=== PATIENT | male | born 1970 | race Caucasian/White ===

== ENCOUNTER 2020-03-14 13:49 | Inpatient (IN) | payer OTHER ==
[~2020-03-14] VITALS: Ht 175.3 cm; Wt 88.6 kg
[~2020-03-14 13:49] MED LIST: PROPOFOL 10 MG/ML, 20ML ONE
[2020-03-14 14:39] VITALS: BP 115/81
[2020-03-14] MEDS ORDERED: OMEP20TA62 PO (14:51)
[2020-03-14] MEDS ORDERED: CHLORHEXIDINE 15 ML UDC ONE (14:53)
[2020-03-14] MEDS ORDERED: CHLORHEXIDINE 15 ML UDC MM STA (15:21)
[2020-03-14] MEDS ORDERED: LACTATED RINGERS 1,000 ML IV SCH ×3 (15:30→19:30)
[2020-03-14] MEDS ORDERED: MIDAZOLAM 1 MG/ML, 2ML ONE (15:43)
[2020-03-14] MEDS ORDERED: FENTANYL PF 100 MCG/2ML ONE (15:43)
[2020-03-14] MEDS ORDERED: FENTANYL PF 100 MCG/2ML IV PRN (16:30)
[2020-03-14] MEDS ORDERED: MEPERIDINE/PF 25MG/0.5ML IVPush PRN (16:30)
[2020-03-14] MEDS ORDERED: HYDROcodone/APAP 7.5-325MG/15ML UDC PO PRN (16:30)
[2020-03-14] MEDS ORDERED: PROMETHAZINE 25 MG/ML, 1ML IVPush PRN (16:30)
[2020-03-14] MEDS ORDERED: HYDROmorphone 1 MG/ML, 1ML INJ IVPush PRN (16:30)
[2020-03-14] MEDS ORDERED: OXYcodone 5 MG/5 ML ORAL.SOL UDC PO PRN (16:30)
[2020-03-14] MEDS ORDERED: VANCOMYCIN 2,000 MG in SODIUM CHLORIDE 0.9% 500 ML IV ONE (19:30)
[2020-03-14] MEDS ORDERED: CEFAZOLIN 2,000 MG in SODIUM CHLORIDE 0.9% 50 ML IV SCH ×2 (19:30→20:00)
[2020-03-14] MEDS ORDERED: ONDANSETRON 4 MG TABLET PO PRN (19:30)
[2020-03-14] MEDS ORDERED: PHARMACOKINETIC MONITORING MC PRN (19:30)
[2020-03-14] MEDS ORDERED: PHARMACOKINETIC CONSULTATION MC ONE (19:30)
[2020-03-14] MEDS ORDERED: VANCOMYCIN PER PHARMACY MC PRN (19:30)
[2020-03-14] MEDS ORDERED: ONDANSETRON 2MG/ML, 2ML IVPush PRN (19:30)
[2020-03-14 19:45] VITALS: BP 121/79
[2020-03-14] MEDS: OXYcodone IR 5MG TABLET PO PRN (20:41)
[2020-03-14] MEDS ORDERED: GABAPENTIN 300 MG CAPSULE PO SCH (21:00)
[2020-03-15 00:18] VITALS: BP 149/93
[2020-03-15] MEDS: CEFAZOLIN PMX 2GM/50ML 50 ML IVPB SCH ×2 (01:13→08:35)
[2020-03-15 04:13] VITALS: BP 124/78
[2020-03-15] MEDS ORDERED: OMEPRAZOLE 20 MG CAPSULE.DR PO SCH (06:00)
[2020-03-15 07:18] LABS: CREATININE 1.05 mg/dL (0.7-1.3)
[2020-03-15] MEDS: OXYcodone IR 5MG TABLET PO PRN (08:36)
[2020-03-15] MEDS ORDERED: LEFLUNOMIDE 20 MG TABLET PO SCH (09:00)
[2020-03-15] MEDS ORDERED: MONTELUKAST 10 MG TABLET PO SCH (09:00)
[2020-03-15] MEDS ORDERED: METOPROLOL TARTRATE 50 MG TAB PO SCH (09:00)
[2020-03-15] MEDS ORDERED: AMLODIPINE 10 MG TAB PO SCH (09:00)
[2020-03-15] MEDS ORDERED: VANCOMYCIN 1,600 MG in SODIUM CHLORIDE 0.9% 250 ML IV SCH (09:00)
[2020-03-15] MEDS ORDERED: CHOLECALCIFEROL 1,000 UNIT TABLET PO SCH (09:00)
[2020-03-15] MEDS ORDERED: FLUTICASONE NASAL SPRAY 16GM NAS SCH (09:00)
[2020-03-15] MEDS ORDERED: LOSARTAN 50MG TABLET PO SCH (09:00)
[2020-03-15] MEDS ORDERED: HYDROCHLOROTHIAZIDE 25 MG TABLET PO SCH (09:00)
[2020-03-15] MEDS ORDERED: LORATADINE 10 MG TABLET PO SCH (09:00)
[2020-03-15] MEDS ORDERED: ESTRADIOL 1 MG TABLET PO SCH (09:00)
[2020-03-15 13:33] VITALS: BP 136/82
[2020-03-15] MEDS: PIPERACILLIN/TAZO/PMX 4.5GM 100 ML IV SCH ×2 (14:33→21:21)
[2020-03-15] MEDS: VANCOMYCIN 1,600 MG in SODIUM CHLORIDE 0.9% 250 ML IV SCH (15:38)
[2020-03-15 18:49] VITALS: BP 130/83
[2020-03-16] MEDS: OXYcodone IR 5MG TABLET PO PRN ×4 (02:11→23:44)
[2020-03-16 02:12] VITALS: BP 131/77
[2020-03-16] MEDS: morphine SULFATE 10 MG/ML, 1ML IVPush PRN (02:38)
[2020-03-16] MEDS: VANCOMYCIN 1,600 MG in SODIUM CHLORIDE 0.9% 250 ML IV SCH (03:28)
[2020-03-16] MEDS: PIPERACILLIN/TAZO/PMX 4.5GM 100 ML IV SCH ×3 (05:39→22:16)
[2020-03-16 05:50] LABS: BASOPHILS % (AUTO) 1 % (0-1); EOSINOPHILS % (AUTO) 4 % (1-7); LYMPHOCYTES % (AUTO) 30 % (22-44); MEAN CORPUSCULAR HGB CONC 33.4 g/dL (33.2-36.2); MEAN PLATELET VOLUME 6.2 fL (7.4-10.4); MONOCYTES % (AUTO) 8 % (2-9); NEUTROPHILS % (AUTO) 57 % (42-75); PLATELET COUNT 305 x10^3/uL (130-400); RED BLOOD COUNT 4.55 x10^6/uL (4.38-5.82); RED CELL DISTRIBUTION WIDTH 13.4 % (9.4-14.8)
[2020-03-16 05:59] LABS: CHLORIDE 105 mmol/L (98-107)
[2020-03-16 06:09] LABS: ALANINE AMINOTRANSFERASE 20 U/L (12-78); ALBUMIN 3.4 g/dL (3.4-5.0); ALKALINE PHOSPHATASE 90 U/L (45-117); ANION GAP 3 mmol/L (5-15); BILIRUBIN,TOTAL 0.8 mg/dL (0.2-1.0); C-REACTIVE PROTEIN, QUANT 0.21 mg/dL (0.02-0.49); CALCIUM 9.4 mg/dL (8.5-10.1); CREATININE 1.12 mg/dL (0.7-1.3); TOTAL PROTEIN 6.8 g/dL (6.4-8.2)
[2020-03-16 06:13] LABS: MD NO
[2020-03-16 06:14] LABS: HCT (SEDRATE) 38.1 % (39.2-51.8)
[2020-03-16 08:00] VITALS: BP 150/87
[2020-03-16 12:33] VITALS: BP 130/82
[2020-03-16] MEDS ORDERED: OMEPRAZOLE 20 MG CAPSULE.DR PO SCH (16:00)
[2020-03-16] MEDS: OMEPRAZOLE 20 MG CAPSULE.DR PO SCH (16:42)
[2020-03-16] MEDS: VANCOMYCIN 1,500 MG in SODIUM CHLORIDE 0.9% 250 ML IV SCH (16:42)
[2020-03-16] MEDS ORDERED: MEGESTROL ORAL.SUSP 40 MG/ML PO SCH ×2 (17:00→21:00)
[2020-03-16] MEDS: MEGESTROL ORAL.SUSP 40 MG/ML PO SCH (18:07)
[2020-03-16 20:20] VITALS: BP 132/82
[2020-03-17 03:20] VITALS: BP 134/85
[2020-03-17] MEDS: OXYcodone IR 5MG TABLET PO PRN ×2 (03:58→08:19)
[2020-03-17] MEDS: VANCOMYCIN 1,500 MG in SODIUM CHLORIDE 0.9% 250 ML IV SCH ×2 (03:58→17:24)
[2020-03-17] MEDS: PIPERACILLIN/TAZO/PMX 4.5GM 100 ML IV SCH (05:58)
[2020-03-17] MEDS: OMEPRAZOLE 20 MG CAPSULE.DR PO SCH (08:06)
[2020-03-17] MEDS: MEGESTROL ORAL.SUSP 40 MG/ML PO SCH ×2 (08:06→17:26)
[2020-03-17 08:35] VITALS: BP 148/87
[2020-03-17] MEDS: morphine SULFATE 10 MG/ML, 1ML IVPush PRN (11:05)
[2020-03-17 14:58] VITALS: BP 133/80
[2020-03-17] MEDS ORDERED: LORazepam 2 MG/ML, 1ML ONE (17:09)
[2020-03-17] MEDS ORDERED: LORazepam 2 MG/ML, 1ML IVPush SCH (17:30)
[2020-03-17] MEDS ORDERED: LORazepam 2 MG/ML, 1ML IVPush ONE (17:30)
[2020-03-17 20:24] VITALS: BP 144/84
[2020-03-18 01:53] VITALS: BP 121/80
[2020-03-18] MEDS: VANCOMYCIN 1,500 MG in SODIUM CHLORIDE 0.9% 250 ML IV SCH (05:32)
[2020-03-18 07:56] VITALS: BP 133/96
[2020-03-18] MEDS: MEGESTROL ORAL.SUSP 40 MG/ML PO SCH ×2 (08:00→08:42)
[2020-03-18] MEDS: OMEPRAZOLE 20 MG CAPSULE.DR PO SCH (08:42)
[2020-03-18] MEDS ORDERED: OMEPRAZOLE 20 MG CAPSULE.DR PO SCH (10:00)
[2020-03-18] MEDS ORDERED: OXYC5CAP2 PO (10:35)
== END 2020-03-18 11:25 | disposition home or self-care (01) | DRG 857 ==
LOC: OR 13:49 → 4NE 18:48 → OR 23:58
PROVIDERS: ADMIT Orthopaedic Surgery; ATTEND Orthopaedic Surgery
PROC: 0QBG0ZZ Excision of Right Tibia, Open Approach (ICD-10-PCS; principal; 2020-03-14 17:45)
PROC: 02HV33Z Insertion of Infusion Device into Superior Vena Cava, Percutaneous Approach (ICD-10-PCS; 2020-03-17)
PROC: B5181ZA Fluoroscopy of Superior Vena Cava using Low Osmolar Contrast, Guidance (ICD-10-PCS; 2020-03-17)
PROC: B548ZZA Ultrasonography of Superior Vena Cava, Guidance (ICD-10-PCS; 2020-03-17)
DX: T81.41XA Infection following a procedure, superficial incisional surgical site, initial encounter (principal); M86.8X6 Other osteomyelitis, lower leg; Z20.828 Contact with and (suspected) exposure to other viral communicable diseases; Z83.3 Family history of diabetes mellitus; Z87.11 Personal history of peptic ulcer disease; Z87.891 Personal history of nicotine dependence; Z82.49 Family history of ischemic heart disease and other diseases of the circulatory system; F12.90 Cannabis use, unspecified, uncomplicated
CPT/HCPCS: 36415; 36573; 80053; 80202; 82550; 82565; 84520; 85025; 85651; 86140; 87015; 87070; 87075; 87077; 87102; 87116; 87186; 87205; 87206; 87635; G0378; J0690; J2250; J2405; J2543; J2704; J3010; J3370; C1751; J2060; J2270; J7040; J7050; J7120

== ENCOUNTER → 2020-03-19 | Outpatient (CLI) | payer OTHER ==
[~2020-03-19] MED LIST changes: +OMEP20TA62 PO; +OXYC5CAP2 PO; -PROPOFOL 10 MG/ML, 20ML ONE
== END | disposition home or self-care (01) ==
LOC: WOUND 07:47
PROVIDERS: ATTEND Internal Medicine
DX: T81.89XA Other complications of procedures, not elsewhere classified, initial encounter (principal); S81.801A Unspecified open wound, right lower leg, initial encounter; M86.061 Acute hematogenous osteomyelitis, right tibia and fibula; F12.90 Cannabis use, unspecified, uncomplicated; M86.8X6 Other osteomyelitis, lower leg; Z87.891 Personal history of nicotine dependence; X93.XXXA Assault by handgun discharge, initial encounter; Y92.89 Other specified places as the place of occurrence of the external cause; Y99.8 Other external cause status; Y93.89 Activity, other specified; Y83.8 Other surgical procedures as the cause of abnormal reaction of the patient, or of later complication, without mention of misadventure at the time of the procedure; Y92.238 Other place in hospital as the place of occurrence of the external cause
CPT/HCPCS: 97597; 99214

== ENCOUNTER 2020-03-21 07:46 | Inpatient (IN) | payer OTHER ==
[~2020-03-21] VITALS: Ht 175.3 cm; Wt 95.8 kg
[2020-03-21] MEDS ORDERED: LACTATED RINGERS 1,000 ML IV SCH (08:30)
[2020-03-21] MEDS ORDERED: CHLORHEXIDINE 15 ML UDC ONE (09:01)
[2020-03-21] MEDS ORDERED: MIDAZOLAM 1 MG/ML, 2ML ONE (09:13)
[2020-03-21] MEDS ORDERED: FENTANYL PF 100 MCG/2ML ONE ×4 (09:13→13:56)
[2020-03-21] MEDS ORDERED: PAPAVERINE 30 MG/ML, 2ML ONE ×2 (10:16→10:25)
[2020-03-21] MEDS ORDERED: HEPARIN 1,000 UNITS/ML, 10ML ONE (10:16)
[2020-03-21] MEDS ORDERED: LIDOCAINE-MPF 2% ,5ML ONE (10:17)
[2020-03-21] MEDS ORDERED: SUGAMMADEX 200 MG/2 ML IVPush ONE (10:43)
[2020-03-21] MEDS ORDERED: ONDANSETRON 2MG/ML, 2ML ONE (11:45)
[2020-03-21] MEDS ORDERED: CEFAZOLIN 1,000 MG ONE (11:45)
[2020-03-21] MEDS ORDERED: ROCURONIUM 10MG/ML,5ML ONE (11:45)
[2020-03-21] MEDS ORDERED: SUCCINYLCHOLINE 20 MG/ML, 10ML ONE (11:45)
[2020-03-21] MEDS ORDERED: NEOSTIGMINE 1 MG/ML, 10ML ONE (11:45)
[2020-03-21] MEDS ORDERED: PROPOFOL 10 MG/ML, 20ML ONE (11:45)
[2020-03-21] MEDS ORDERED: DEXAMETHASONE 4 MG/ML, 1ML ONE (11:45)
[2020-03-21] MEDS ORDERED: GLYCOPYRROLATE 0.2MG/1ML, 5ML ONE (11:45)
[2020-03-21] MEDS ORDERED: MINERAL OIL 10 ML VIAL MC ONE (13:20)
[2020-03-21] MEDS ORDERED: BUPIVACAINE/PF 0.5% ONE (13:25)
[2020-03-21] MEDS ORDERED: EPINEPHRINE 1 MG/ML, 1ML ONE (13:25)
[2020-03-21] MEDS: FENTANYL PF 100 MCG/2ML IV PRN ×4 (13:55→14:33)
[2020-03-21] MEDS ORDERED: HYDROmorphone 1 MG/ML, 1ML INJ ONE (13:56)
[2020-03-21] MEDS ORDERED: ACETAMINOPHEN 650 MG/20.3 ML UDC ONE (13:56)
[2020-03-21] MEDS ORDERED: OXYcodone 5 MG/5 ML ORAL.SOL UDC ONE (13:56)
[2020-03-21] MEDS ORDERED: MEPERIDINE/PF 25MG/ML,1ML ONE (13:56)
[2020-03-21] MEDS ORDERED: MEPERIDINE/PF 25MG/0.5ML IVPush PRN (14:30)
[2020-03-21] MEDS ORDERED: ACETAMINOPHEN 325 MG TABLET PO PRN (14:30)
[2020-03-21] MEDS ORDERED: LABETALOL 5MG/ML, 20ML IV PRN (14:30)
[2020-03-21] MEDS ORDERED: MIDAZOLAM 1 MG/ML, 2ML IV PRN (14:30)
[2020-03-21] MEDS ORDERED: OXYcodone 5 MG/5 ML ORAL.SOL UDC PO PRN (14:30)
[2020-03-21] MEDS ORDERED: ONDANSETRON 2MG/ML, 2ML IVPush PRN (14:30)
[2020-03-21] MEDS: HYDROmorphone 1 MG/ML, 1ML INJ IVPush PRN ×2 (14:55→15:13)
[2020-03-21] MEDS ORDERED: ONDANSETRON 2MG/ML, 2ML IV PRN (17:00)
[2020-03-21] MEDS ORDERED: HYDROcodone/APAP 5/325 TABLET PO PRN (17:00)
[2020-03-21] MEDS: OXYcodone 5 MG/5 ML ORAL.SOL UDC PO PRN ×2 (18:42→23:10)
[2020-03-21] MEDS: POTASSIUM CHLORIDE 20 MEQ in D5%-0.45% NACL 1,000 ML IV SCH (18:42)
[2020-03-21] MEDS: DAPTOMYCIN 500 MG in SODIUM CHLORIDE 0.9% 100 ML IV SCH (18:42)
[2020-03-21 19:37] VITALS: BP 120/68
[2020-03-22 00:13] VITALS: BP 113/68
[2020-03-22] MEDS: OMEPRAZOLE 20 MG CAPSULE.DR PO SCH (06:51)
[2020-03-22] MEDS: ENOXAPARIN 40 MG/0.4 ML SQ SCH (06:51)
[2020-03-22 07:57] VITALS: BP_SYST 110; BP_SYST 122; BP_DIAS 67; BP_DIAS 78
[2020-03-22] MEDS: POTASSIUM CHLORIDE 20 MEQ in D5%-0.45% NACL 1,000 ML IV SCH (12:00)
[2020-03-22] MEDS: KETOROLAC 30 MG/1 ML IV PRN (14:55)
[2020-03-22] MEDS: OXYcodone 5 MG/5 ML ORAL.SOL UDC PO PRN (14:55)
[2020-03-22 15:00] VITALS: BP 139/82
[2020-03-22] MEDS ORDERED: HYDROmorphone 1 MG/ML, 1ML INJ ONE (17:50)
[2020-03-22] MEDS: HYDROmorphone 2 MG/ML, 1ML IVPush PRN ×2 (17:55→18:32)
[2020-03-22] MEDS: DAPTOMYCIN 500 MG in SODIUM CHLORIDE 0.9% 100 ML IV SCH (18:43)
[2020-03-22 19:30] VITALS: BP 132/78
[2020-03-22] MEDS ORDERED: DIPHENHYDRAMINE 50 MG CAPSULE PO PRN (20:00)
[2020-03-23 00:13] VITALS: BP 124/75
[2020-03-23] MEDS ORDERED: DIPHENHYDRAMINE 25 MG CAPSULE ONE (00:14)
[2020-03-23] MEDS: OXYcodone 5 MG/5 ML ORAL.SOL UDC PO PRN ×5 (00:26→21:30)
[2020-03-23] MEDS: KETOROLAC 30 MG/1 ML IV PRN ×2 (00:27→17:56)
[2020-03-23] MEDS: POTASSIUM CHLORIDE 20 MEQ in D5%-0.45% NACL 1,000 ML IV SCH ×2 (01:28→14:56)
[2020-03-23] MEDS: ENOXAPARIN 40 MG/0.4 ML SQ SCH (06:32)
[2020-03-23] MEDS: OMEPRAZOLE 20 MG CAPSULE.DR PO SCH (06:32)
[2020-03-23 06:38] LABS: CREATININE 1.23 mg/dL (0.7-1.3)
[2020-03-23 09:00] VITALS: BP 125/75
[2020-03-23 15:08] VITALS: BP 146/90
[2020-03-23] MEDS: DAPTOMYCIN 500 MG in SODIUM CHLORIDE 0.9% 100 ML IV SCH (17:56)
[2020-03-23 19:24] VITALS: BP 136/74
[2020-03-24] MEDS: OXYcodone 5 MG/5 ML ORAL.SOL UDC PO PRN ×4 (02:55→22:47)
[2020-03-24 02:58] VITALS: BP 124/74
[2020-03-24] MEDS: POTASSIUM CHLORIDE 20 MEQ in D5%-0.45% NACL 1,000 ML IV SCH ×2 (04:24→17:23)
[2020-03-24] MEDS: ENOXAPARIN 40 MG/0.4 ML SQ SCH (06:10)
[2020-03-24] MEDS: OMEPRAZOLE 20 MG CAPSULE.DR PO SCH (06:10)
[2020-03-24 07:25] VITALS: BP 150/87
[2020-03-24 14:00] VITALS: BP 151/85
[2020-03-24 16:19] VITALS: BP 151/85
[2020-03-24] MEDS: DAPTOMYCIN 500 MG in SODIUM CHLORIDE 0.9% 100 ML IV SCH (18:28)
[2020-03-24 19:01] VITALS: BP 145/87
[2020-03-25 04:13] VITALS: BP 120/76
[2020-03-25] MEDS: ENOXAPARIN 40 MG/0.4 ML SQ SCH (05:46)
[2020-03-25] MEDS: OMEPRAZOLE 20 MG CAPSULE.DR PO SCH (05:46)
[2020-03-25 07:11] VITALS: BP 152/77
[2020-03-25] MEDS: POTASSIUM CHLORIDE 20 MEQ in D5%-0.45% NACL 1,000 ML IV SCH (07:20)
[2020-03-25 10:13] LABS: BASOPHILS % (AUTO) 1 % (0-1); EOSINOPHILS % (AUTO) 5 % (1-7); LYMPHOCYTES % (AUTO) 23 % (22-44); MEAN CORPUSCULAR HEMOGLOBIN 28.1 pg (27.5-34.5); MEAN CORPUSCULAR HGB CONC 33.7 g/dL (33.2-36.2); MEAN PLATELET VOLUME 6.4 fL (7.4-10.4); MONOCYTES % (AUTO) 9 % (2-9); NEUTROPHILS % (AUTO) 62 % (42-75); PLATELET COUNT 443 x10^3/uL (130-400); RED BLOOD COUNT 4.27 x10^6/uL (4.38-5.82); RED CELL DISTRIBUTION WIDTH 13.3 % (9.4-14.8)
[2020-03-25 10:13] LABS: ALANINE AMINOTRANSFERASE 26 U/L (12-78); ALBUMIN 3.2 g/dL (3.4-5.0); ANION GAP 7 mmol/L (5-15); CALCIUM 9.2 mg/dL (8.5-10.1); CHLORIDE 107 mmol/L (98-107); CREATININE 1.31 mg/dL (0.7-1.3)
[2020-03-25 10:19] LABS: ALKALINE PHOSPHATASE 76 U/L (45-117); BILIRUBIN,TOTAL 0.3 mg/dL (0.2-1.0); CREATINE KINASE, TOTAL 129 U/L (39-308); TOTAL PROTEIN 7.1 g/dL (6.4-8.2)
[2020-03-25 10:25] LABS: MD NO
[2020-03-25 10:36] LABS: HCT (SEDRATE) 35.5 % (39.2-51.8)
[2020-03-25] MEDS: DAPTOMYCIN 500 MG in SODIUM CHLORIDE 0.9% 100 ML IV SCH (12:42)
[2020-03-25 13:54] VITALS: BP 144/68
== END 2020-03-25 14:30 | disposition home or self-care (01) | DRG 578 ==
LOC: OUT 07:46 → 3WST 16:57 → OUT 17:07 → 3WST 17:09 → DCLOUNGE 03-25 14:11
PROVIDERS: ADMIT Plastic Surgery; ATTEND Plastic Surgery
PROC: 0HXKXZZ Transfer Right Lower Leg Skin, External Approach (ICD-10-PCS; principal; 2020-03-21 10:00)
PROC: 0KBS0ZZ Excision of Right Lower Leg Muscle, Open Approach (ICD-10-PCS; 2020-03-21 10:00)
DX: S81.831A Puncture wound without foreign body, right lower leg, initial encounter (principal); W33.01XA Accidental discharge of shotgun, initial encounter; Y93.89 Activity, other specified; Y92.89 Other specified places as the place of occurrence of the external cause; Y99.8 Other external cause status; Z20.828 Contact with and (suspected) exposure to other viral communicable diseases
CPT/HCPCS: 36415; J3490; S0020; 80053; 82550; 82565; 85025; 85651; 86140; 87635; C1729; G0378; J0171; J0690; J0878; J1100; J1170; J1644; J1650; J1885; J2250; J2405; J2704; J2710; J3010; J3480; J0330; J2440

== ENCOUNTER 2020-03-25 17:52 | Emergency (ER) | payer OTHER ==
[~2020-03-25] VITALS: Ht 175.3 cm; Wt 82.0 kg
[2020-03-25 19:41] VITALS: BP 105/68
== END 2020-03-25 19:43 | disposition home or self-care (01) ==
LOC: ED 18:50
DX: T82.838A Hemorrhage due to vascular prosthetic devices, implants and grafts, initial encounter (principal); Z87.891 Personal history of nicotine dependence
CPT/HCPCS: 99281

== ENCOUNTER → 2020-04-01 | Outpatient (CLI) | payer OTHER | END | disposition home or self-care (01) | LOC: RAD 10:38 | PROVIDERS: ATTEND Internal Medicine Infectious Disease | DX: J18.9 Pneumonia, unspecified organism (principal) | CPT/HCPCS: 71046 ==